=== PATIENT | female | born 1970 | race Two or more races ===

== ENCOUNTER 2016-12-07 17:55 | Emergency (ER) | payer SELFPAY ==
[~2016-12-07] VITALS: Ht 177.8 cm; Wt 65.8 kg
[2016-12-07] MEDS ORDERED: XANAX0.5 MG ORAL (18:24)
[2016-12-07] MEDS ORDERED: PAXIL20 MG ORAL (18:24)
--- NOTE | 2016-12-07 18:27 | Emergency Room Report ---
History of Present Illness General Chief Complaint: Behavioral Complaint Source: Patient Present Illness HPI The patient is a 46-year-old female with history of depression and anxiety disorder presenting for medication refill. The patient states that she ran out of Paxil and Xanax 2 days prior and has been feeling anxious. The patient states that she has an appointment with a new primary care doctor in 2 weeks and is unable to get a refill of prescriptions. Pt denies SI, HI. Pt denies: CP, SOB, N, V, F, abd pain Allergies: Coded Allergies: NITROFURANTOIN (Verified Allergy, Mild, 12/07/16) FLU-LIKE SYMPTOMS STATED THE PT Patient History Past Medical History: see triage record, psych hx Pertinent Family History: none Last Menstrual Period: 12/05/16 Now: No Reviewed Nursing Documentation: PMH: Agreed, PSxH: Agreed Nursing Documentation-PMH Past Medical History: No History, Except For History Of Psychiatric Problem: Yes - ANXIETY, DEPRESSION Review of Systems All Other Systems: negative except mentioned in HPI Physical Exam Vital Signs Date Time Temp Pulse Resp B/P Pulse Ox O2 Delivery O2 Flow Rate FiO2 12/07/16 18:07 98.6 80 19 148/88 98 Room Air Sp02 EP Interpretation: reviewed, normal General Appearance: no apparent distress, alert, GCS 15, non-toxic Head: normocephalic, atraumatic Eyes: bilateral eye PERRL, bilateral eye normal inspection ENT: hearing grossly normal, normal pharynx, no angioedema, normal voice Neck: full range of motion, supple/symm/no masses Musculoskeletal: back normal, gait/station normal, normal range of motion, non- tender Neurologic: alert, oriented x3, responsive, motor strength/tone normal, sensory intact, speech normal Psychiatric: judgement/insight normal, memory normal, no suicidal/homicidal ideation, anxious Suicide Risk Assessment: Suicidal Ideation: No Had intent to initiate attempt: No Pt's plan for suicide attempt: No Has means to complete attempt: No Skin: normal color, no rash, warm/dry, well hydrated Lymphatic: no adenopathy Medical Decision Making PA Attestation Dr. Jansen is my supervising physician. Patient management was discussed with my supervising physician Diagnostic Impression: Primary Impression: Anxiety disorder Additional Impression: Depression ER Course The patient is a 46-year-old female with history of depression and anxiety disorder presenting for medication refill Differential diagnoses considered but not limited to suicidal ideation, homicidal ideation, depression, anxiety disorder, drug seeking behavior PE: vitals WNL. NAD Pt mildly anxious. PERRL A&Ox3. No SI/HI Head NC/AT Skin warm and dry. CURES one prescription for xanax filled august of 2016. Pt is given a refill of prescriptions and will FU with PMD/psychiatrist [facility] ER precautions given Last Vital Signs Date Time Temp Pulse Resp B/P Pulse Ox O2 Delivery O2 Flow Rate FiO2 12/07/16 18:07 98.6 80 19 148/88 98 Room Air Status: improved Disposition: HOME, SELF-CARE Condition: Improved Scripts Alprazolam* (XANAX*) 0.5 Mg Tablet 0.5 MG ORAL DAILY Y for PRN Agitation/Anxiety, #15 TAB 0 Refills Prov: LAXMI HOLLEY 12/07/16 Paroxetine Hcl* (PAXIL*) 20 Mg Tablet 20 MG ORAL DAILY, #15 TAB 0 Refills Prov: LAXMI HOLLEY 12/07/16 Patient Instructions: Panic Attacks, Depression, Adult Additional Instructions: I discussed my findings with the patient. All questions and concerns have been answered. Treatment and medication compliance have been addressed. I advised the patient that they need to follow up with PMD in 3-5 days. Return to ED if symptoms worsen, new symptoms arise, or if needed for any reason. Patient verbalized understanding of discharge instructions. The patient is told that she needs to see a psychiatrist as soon as possible for further care and management LAXMI HOLLEY Dec 07, 2016 18:27
[2016-12-07 18:29] VITALS: BP 148/88
== END 2016-12-07 18:31 | disposition home or self-care (01) ==
LOC: EMR 18:28
DX: F41.9 Anxiety disorder, unspecified (principal); F32.9 Major depressive disorder, single episode, unspecified; Z76.0 Encounter for issue of repeat prescription; Z88.8 Allergy status to other drugs, medicaments and biological substances
CPT/HCPCS: 99284